=== PATIENT | male | born 1965 | race Caucasian/White ===

== ENCOUNTER 2022-04-10 18:56 | Emergency (ER) | payer SELFPAY ==
--- NOTE | 2022-04-10 19:11 | NUR.NOTE ---
told solitario that because he had to wait for nursing on arrival he was leaving because he could have hung himself by now and he 'fuck this. Nursing Note:
== END 2022-04-10 19:10 ==
LOC: ER 04-11
PROVIDERS: Emergency Provider Physician Assistant
DX: Z53.21 Procedure and treatment not carried out due to patient leaving prior to being seen by health care provider (principal)

== ENCOUNTER 2025-02-27 09:37 | Emergency (ER) | payer BC, SELFPAY ==
[2025-02-27] VITALS (18 sets, daily range): BP systolic 108–138; BP diastolic 64–83; PULSE 56–105; RESP 14–25; TEMP 36.5–36.8; O2SAT 96–100
--- NOTE | 2025-02-27 09:38 | W.ED.GENAD ---
Discharge Plan Disposition Patient Disposition: Transfer-Acute Inpatient Care Specific Acute Inpt Facility: [facility] Discharge Details Clinical Impression: Neck abscess Primary Care Provider: Unknown,Unknown ED Provider: Jacinto Claudio Home Meds and New Rx's Prescriptions: No Action citalopram 40 MG tablet 20 mg PO DAILY HPI General Date/Time Provider Initiated Documentation: 02/27/25 09:38. HPI Narrative: MDM This is a tachycardic but normotensive and normothermic 59-year-old male with recurrent left-sided neck swelling tenderness bullae and erythema with induration concerning for deep space infection. Patient denies risk factors of diabetes and tobacco use however does have poor dentition. Will cover with ampicillin-sulbactam and vancomycin after drawing blood cultures checking a lactate and keeping patient n.p.o. with 1 L IV fluids. No pain out of proportion to suggest necrotizing soft tissue infection. No recent sore throat to suggest increased respiratory millimeters disease. Patient has not been vomiting to suggest increased risk for subdural empyema. No brawny edema submentally to suggest Albert's angina. Anticipate [facility] transfer for ENT. 10:15 AM Patient was having his blood work drawn. He had a syncopal episode. I went into the room. Patient was unresponsive for approximately 30 seconds. I performed a jaw thrust. Patient had reassuring blood pressure in the 160s. He was diaphoretic. He did not become hypoxic. He immediately returned to baseline after waking back up. There was no tonic clonic activity. His head was lowered in the chair. He was transported via stretcher to a monitored room. 10:35 AM Reassuring lactate within normal limits. CBC notable for leukocytosis. No anemia. No thrombocytopenia. 11:54 AM Base metabolic panel with no NICOLETTE. Reassuring electrolytes. On CT patient had significant left neck abscess. Given prior history of abscess in similar location and need for follow-up I reached out to the transfer center. I spoke with Dr. Curry from ENT. He agreed that the patient could be seen at [facility]. I was in touch with Dr. Leahy from the ED who graciously agreed to accept the patient. Will send patient with a basic EMT. I updated patient and her sister. I advised patient that there was certainly a chance that the abscess could be opened at bedside in the ED at [facility] and that the patient could be discharged later today. I advised that his sister should drive several light such that he could be driven home if he was discharged today. Chronic conditions affecting the care of the patient: Prior dental abscesses and neck abscess History obtained from an outside historian: N/A External record review: [facility] EMR Medications: Broad-spectrum IV antibiotics Social determinants of health affecting disposition: N/A Management discussed with: ENT Treatment/interventions considered: N/A Response to therapies provided: N/A HPI This is a patient with a history of a previous neck infection requiring surgical intervention presenting with swelling and pain in the left side of the neck. The patient reports that the swelling began approximately one week ago, initially presenting as a hard, thickened area on the left side of the neck. Over the past two days, the swelling has slightly reduced. The patient describes feeling as though they have influenza, but has not measured their temperature and reports no fever. The patient is not currently taking any antibiotics but recalls a similar episode three months ago, which was treated with antibiotics prescribed by their primary care physician. The patient is not on any blood thinners. The last meal was at 7:00-7:30 AM, consisting of crackers, two cups of coffee, and bernabe. The patient had an infection in the same area about a decade ago, which required surgical intervention, and there is a visible scar from that surgery. The patient reports no pain in their teeth or mouth, although they mention having poor dental health and exposed nerves, which limit their ability to eat on one side and brush their back teeth. PAST SURGICAL HISTORY: Surgical intervention for neck infection approximately a decade ago. Exam General: Uncomfortable-appearing in no acute distress speaking in complete sentences. Head: Normocephalic, atraumatic. Eye: Extraocular eye movements intact. No conjunctival injection. No scleral icterus. Ear, nose, mouth, throat: Intraorally patient has quite poor dentition. No no progressive tenderness to mandibular molars on left. Neck: Trachea midline.On the left side of the patient's neck just below the angle of the mandible there is an approximately 4 x 3 cm large erythematous indurated area with overlying bullae Cardiovascular: Well-perfused distal extremities. Respiratory: Nonlabored respiration. Gastrointestinal: Nondistended abdomen. Musculoskeletal: No edema. Moving all 4 extremities spontaneously. Skin: Normal for age and race, grossly normal temperature and turgor. No acute rash. Neurologic: Alert and appropriate, no apparent acute deficits. Related Data Home Medications ?Medication ?Instructions ?Recorded ?Confirmed citalopram 40 mg tablet 20 mg PO DAILY 12/22/14 02/27/25 Allergies Allergy/AdvReac Type Severity Reaction Status Date / Time No Known Allergies Allergy Unverified 02/27/25 09:51 PFSH All Active Problems (Updated 02/27/25 @ 12:00 by Jacinto Claudio MD) Neck abscess (Acute) Tobacco abuse (Chronic) Anxiety and depression (Chronic) Dental caries (Acute 12/22/14) Dental abscess (Acute 12/22/14) Social History Smoking/Tobacco Use Status: Former Tobacco Use Smoking risk assessment performed?: Yes Alcohol Intake: former Drug use: Never Substance use type: does not use Housing: apartment Do you feel safe at home: Yes
--- NOTE | 2025-02-27 10:00 | RT.EKG_ITS ---
APPROVED REPORT Exam: Resting ECG Reason for Exam: Syncope Patient Location: E HR:64 bpm ECG Measurements Heart Rate 64 AXIS GA 147 P 62 QRSd 96 QRS 45 QT 407 T 42 QTc 422 Conclusion Sinus rhythm...normal P axis, V-rate 60- 99 No Occlusion SD
--- NOTE | 2025-02-27 10:01 | DI.CT_ITS ---
Exam(s) CT NECK W EXAM: CT NECK W CLINICAL HISTORY: Left neck abscess. TECHNIQUE: Imaging Protocol: Axial computed tomography images with coronal and sagittal reformatted images were created and reviewed CONTRAST MATERIAL: Intravenous: Omnipaque 350 Contrast volume:100 ml contrast COMPARISON: CT NECK WITH CONTRAST from 12/22/2014 FINDINGS: Parotids: Normal. Submandibular glands: Normal. Thyroid gland: Normal. Lymph nodes: There are scattered lymph nodes seen along the level one to level three all measuring less than 8 mm in short axis diameter which are physiologic in nature. Carotids arteries: No significant stenosis or dissection. Vertebral arteries: No significant stenosis or dissection. The floor the mouth is unremarkable. The tonsils and adenoids are unremarkable. The epiglottis and vocal cords are within normal limits. Lungs: Images through both lung apices are unremarkable. Bones: Degenerative changes of the cervical spine. Visualized portions of the brain and orbits: Unremarkable. Sinuses and mastoids: Clear. Soft tissues: Peripherally enhancing multiloculated collection anterior to the left sternal mastoid muscle, at the level of the hyoid and thyroid cartilage. Approximate measurements are 2.5 x 1.5 x 2 cm. Findings are consistent with an abscess. IMPRESSION: Abscess in the left side of the neck, in the soft tissues anterior to the sternocleidomastoid muscle. The preliminary [facility] report was reviewed. RADIATION DOSE DELIVERED: Total DLP DATA REPOSITORY: All CT scans at this facility are submitted to the National Radiology Data Registry (NRDR) Dose Index Registry (DIR) with the [employer] ([employer]). RADIATION OPTIMIZATION: All CT scans at this facility use at least one of these dose optimization techniques: automated exposure control; mA and/or kV adjustment per patient size (includes targeted exams where dose is matched to clinical indication); or iterative reconstruction.
[2025-02-27] MEDS: Normal Saline 1,000 ML 1000 ML IV (10:20)
[2025-02-27 10:23] LABS: Abs Immature Grans 0.05 10^3/uL (0.0-0.06); HCT 44.9 % (40.0-50.0); HGB 15.0 g/dL (13.5-17.5); Immature Grans % 0.4 %; MCH 29.6 pg (27.0-33.0); MCHC 33.4 % (32.0-36.0); MCV 89 fL (80-95); MPV 10.1 fL (8.0-11.0); Platelet Count 254 10^3/uL (130-400); RBC 5.06 10^6/uL (4.36-5.78); RDW 12.1 % (11.8-14.1); RDW-SD 39.0 fL; WBC 12.90 10^3/uL (4.4-10.8)
[2025-02-27] MEDS: AMPICILLIN/SULBACTAM 3 GM in Normal Saline 100 ML IVPB (10:33)
[2025-02-27 10:36] LABS: Anion Gap 9.1 mmol/L (3-11); BUN 12 mg/dL (7-18); CO2 27.9 mmol/L (21.0-32.0); Calcium 9.3 mg/dL (8.5-10.1); Chloride 99 mmol/L (98-107); Estimated GFR 87.24 (mL/min/1.73m2); Glucose 104 mg/dL (74-106); Potassium 3.8 mmol/L (3.5-5.1); Sodium 136 mmol/L (136-145)
[2025-02-27] MEDS: Omnipaque 350 MG/ML 100 ML BTL IJ (10:48)
[2025-02-27] MEDS: Normal Saline - Diluent 50 ML VIAL IJ (10:48)
[2025-02-27] MEDS: Normal Saline Flush 10 ML SYR IVP (10:48)
[2025-02-27] MEDS: VANCOMYCIN/WATER (PEG) 1.5 GM/300 ML BAG IVPB (11:13)
--- NOTE | 2025-02-27 11:31 | DI.[facility]_ITS ---
PROCEDURE INFORMATION: Exam: CT Neck With Contrast Exam date and time: 02/27/2025 10:46 AM Age: 59 years old Clinical indication: Left neck abscess TECHNIQUE: Imaging protocol: Computed tomography of the neck with contrast. Contrast material: OMNIPAQUE 350; Contrast volume: 100 ml; Contrast route: INTRAVENOUS (IV); COMPARISON: No relevant prior studies available. FINDINGS: Salivary glands: Glands are normal in size. Pharynx: Unremarkable. No significant tonsillar enlargement. Larynx: Unremarkable. Epiglottis is normal. Thyroid: The thyroid gland is homogeneous and not enlarged. Trachea: Visualized trachea is unremarkable. Lungs: Unremarkable as visualized. Lymph nodes: No pathologically enlarged lymph nodes. Bones/joints: There is straightening of the cervical spine. This can be due to patient position or muscle spasm. Multilevel disc degeneration in the cervical spine. Soft tissues: There is an irregular, septated fluid collection with an enhancing rim, measuring approximately 2.5 cm x 1.5 cm x 2 cm in size compatible with an abscess. This lies adjacent to the anterior margin of the left sternocleidomastoid muscle and posterolateral to the left submandibular gland. This is approximately the level of the laryngeal cartilage. This would be compatible with an abscess. IMPRESSION: Superficial left neck abscess. Dictated and Authenticated by: Nikhil Gee MD. Orderin Shanon Casey MD
== END 2025-02-27 12:25 | disposition short-term general hospital (02) ==
PROVIDERS: Emergency Provider Emergency Medicine
DX: L02.11 Cutaneous abscess of neck (principal)
CPT/HCPCS: 36415; 70491; 80048; 87040; 93005; 96365; 99285; 83605; 85025; 93010; J0295; J3373; J3490